=== PATIENT | male | born 1980 | race Caucasian/White ===

== ENCOUNTER 2017-04-19 13:44 | Emergency (ER) | payer MEDICAID ==
[2017-04-19 13:54] VITALS: PULSE 120
--- NOTE | 2017-04-19 14:10 | EDPHY ---
HPI/HX/ROS/PE/MDM Narrative: CHIEF COMPLAINT: Testicle bruising HPI: The patient is a 37 y/o male complaining of testicular bruising that appeared last night. He states he has been using a "cock ring" around his penis and testicles every day for the last couple weeks. He developed swelling and bruising at the base of his penis and scrotum on the left side after using this device last night. He denies significant scrotal or abdominal pain, dysuria, hematuria, difficulty with erections, or other symptoms. REVIEW OF SYSTEMS: Aside from elements discussed in the HPI, a comprehensive 10-point review of systems was reviewed and is negative. PMH: Denies SOCIAL HISTORY: Lives in [place] PHYSICAL EXAM: General:Patient is alert, in no acute distress. ENT:Eyes are normal to inspection. ENT inspection normal. Neck: Normal inspection. Full range of motion. Respiratory:No respiratory distress. Cardiovascular: Normal cap refill. Abdomen:The abdomen is nontender to palpation. There are no peritoneal signs. : Mild tenderness to left inguinal canal, mild ecchymosis to midline scrotum Back: Normal to inspection. No tenderness to palpation. Skin: Normal color. No rash. Warm and dry. Extremities: Normal appearance. Full range of motion. Neuro: Oriented x3. Normal motor function. Normal sensory function. ED Course: Plan for testicular US. - Data Points Imaging Results: Imaging Impressions Testicular Ultrasound 04/19/17 14:03 Impression: 1. Normal testes. No torsion or orchitis. 2. Trace bilateral hydroceles. Findings discussed with Emergency Department physician, Dr. Jesus Toledo, on April 19, 2017 at 1506 hours. Imaging: Discussed imaging studies w/ ceramic worker Radiologist General Time Seen by Provider: 04/19/17 14:01 Initial Vital Signs: Initial Vital Signs Temperature (C) 36.6 C 04/19/17 13:50 Heart Rate 120 H 04/19/17 13:50 Respiratory Rate 16 04/19/17 13:50 Blood Pressure 142/108 H 04/19/17 13:50 O2 Sat (%) 96 04/19/17 13:50 O2 Delivery Mode Room Air Allergies/Adverse Reactions: Penicillins Allergy (Verified 10/17/11 12:54) HIVE Home Medications: Medication Instructions Recorded AMITRIPTYLINE HCL 03/25/16 Wellbutrin 100mg (RX) 03/25/16 Zyprexa 03/25/16 Departure - Departure Disposition: Home, Routine, Self-Care Clinical Impression: Bruise of scrotum Qualifiers: Encounter type: initial encounter Qualified Code(s): S30.22XA - Contusion of scrotum and testes, initial encounter Condition: Good Instructions: Scrotal Pain (ED) Additional Instructions: Discontinue use of cock ring. Follow up with your primary care provider or urologist for continued symptoms. Return to the ED for severe pain, blood in your urine, or other worsening of condition. Referrals: NONE *PRIMARY CARE P,. [Primary Care Provider] - As per Instructions Chris Hassan MD [Medical Doctor] - As per Instructions Report Scribed for: Jesus Toledo Report Scribed by: Maddie Collins Date of Report: 04/19/17 Time of Report: 14:10 Physician Review and Approval Statement: Portions of this note were transcribed by an ED scribe. I personally performed the history, physical exam, and medical decision making; and confirm the accuracy of the information in the transcribed note.
[2017-04-19 15:24] VITALS: BP 144/88; RESP 18; TEMP 98.2; O2SAT 95
== END 2017-04-19 15:23 | disposition home or self-care (01) ==
DX: S30.22XA Contusion of scrotum and testes, initial encounter (principal); W22.8XXA Striking against or struck by other objects, initial encounter

== ENCOUNTER 2018-05-28 05:45 | Emergency (ER) | payer MEDICAID ==
[2018-05-28] MEDS ORDERED: PHENAZOPYRIDINE HCL 200 MG TAB PO ONE (05:59)
--- NOTE | 2018-05-28 06:10 | EDPHY ---
H & P Time Seen by Provider: 05/28/18 06:09 HPI/ROS: 38 yo M presents c/o gus hematuria that began this morning. No fever or chils, has had some achiness right lower back and past hx of kidney stones. Review of systems As per [facility] General no fever no chills no weakness HEENT no eye pain no eye discharge. No eye redness, no sore throat Respiratory no cough, no shortness of breath Cardiac no chest pain, no peripheral edema GI no abdominal pain, no diarrhea, no constipation, no nausea, no vomiting no flank pain, positive hematuria, no dysuria Musculoskeletal no myalgias, no joint pain Heme no easy bruising, no easy bleeding Endo no polyuria, no polydipsia Skin no rashes, no pruritus Neuro no syncope, no dizziness, no headaches Psych is no suicidal ideation, no homicidal ideation Past Medical/Surgical History: bipolar kidney stones Social History: denies current drug use Smoking Status: Former smoker Physical Exam: 38-year-old male alert and oriented no acute distress nontoxic appearance afebrile HEENT atraumatic normocephalic, extraocular muscles intact, anicteric Oropharynx negative for erythema negative exudate, tolerating her own secretions Neck supple no meningismus Lungs clear to auscultation bilaterally Heart regular rate and rhythm without murmur rub or gallop Abdomen nondistended normoactive bowel sounds soft nontender Back no CVA tenderness, no step-offs, no spinal tenderness Extremities no cyanosis clubbing or edema Neuro alert and oriented, no focal deficits Constitutional: Initial Vital Signs Temperature (C) 36.4 C 05/28/18 05:48 Heart Rate 96 05/28/18 05:48 Respiratory Rate 16 05/28/18 05:48 Blood Pressure 129/98 H 05/28/18 05:48 O2 Sat (%) 98 05/28/18 05:48 O2 Delivery Mode Room Air Allergies/Adverse Reactions: Penicillins Allergy (Verified 05/28/18 05:48) HIVE Home Medications: Medication Instructions Recorded AMITRIPTYLINE HCL 03/25/16 Wellbutrin 100mg (RX) 03/25/16 Zyprexa 03/25/16 Phenazopyridine HCl 200 mg PO TID 2 Days #6 tablet 05/28/18 Sulfamethox/Tmp 800/160 mg 1 tab PO BID #14 tab 05/28/18 [Bactrim Ds] Medical Decision Making ED Course/Re-evaluation: pt here for evaluation of hematuria, dysuria. sent ua, urine culture CBC bmp wnl creatinine 1.3 imp Hemmorhagic cystitis Plan bactrim phenazopyridine f/u [facility] Differential Diagnosis: Differential diagnosis considered but not limited to: Hematuria, hemorrhagic cystitis, urinary tract infection, ureterolithiasis - Data Points Laboratory Results: 05/28/18 05/28/18 06:35 06:00 POC Sodium 140 mEq/L mEq/L (135-145) POC Potassium 3.7 mEq/L mEq/L (3.3-5.0) POC Chloride 102.0 mEq/L mEq/L (97-110) POC Total CO2 25 mEq/L mEq/L (22-31) POC BUN 10 mg/dL mg/dL (7-23) POC Creatinine 1.3 mg/dL mg/dL (0.7-1.3) POC Glucose 85 mg/dL mg/dL (70-100) POC Calcium 9.3 mg/dL mg/dL (8.5-10.4) Urine Color Pending Urine Appearance Pending Urine pH Pending Ur Specific [place] Pending Urine Protein Pending Urine Ketones Pending Urine Blood Pending Urine Nitrate Pending Urine Bilirubin Pending Urine Urobilinogen Pending Ur Leukocyte Esterase Pending Urine RBC Pending Urine WBC Pending Ur Epithelial Cells Pending Urine Glucose Pending Medications Given: Discontinued Medications Phenazopyridine HCl (Pyridium) 200 mg PO EDNOW ONE Stop: 05/28/18 06:00 Last Admin: 05/28/18 06:03 Dose: 200 mg Trimethoprim/Sulfamethoxazole (Bactrim Ds Prepack#2) 1 btl TAKEHOME EDNOW ONE Stop: 05/28/18 06:34 Last Admin: 05/28/18 06:40 Dose: 1 btl Point of Care Test Results: CBC CBC Collection Date 05/28/18 CBC Collection Time 06:25 WBC 13 RBC 5.67 HGB 17.2 HCT 51.6 PLT 208 Neut # 10.2 Neut 78.6 LYMPH # 2.3 LYMPH 17.6 Other WBC # 0.5 Other WBC 3.8 MCV 91 Chemistry 05/28/18 06:35 POC Sodium 140 mEq/L mEq/L (135-145) POC Potassium 3.7 mEq/L mEq/L (3.3-5.0) POC Chloride 102.0 mEq/L mEq/L (97-110) POC Total CO2 25 mEq/L mEq/L (22-31) POC BUN 10 mg/dL mg/dL (7-23) POC Creatinine 1.3 mg/dL mg/dL (0.7-1.3) POC Glucose 85 mg/dL mg/dL (70-100) POC Calcium 9.3 mg/dL mg/dL (8.5-10.4) Departure - Departure Disposition: Home, Routine, Self-Care Clinical Impression: Acute hemorrhagic cystitis Condition: Good Instructions: Sulfamethoxazole/Trimethoprim (By mouth), Urinary Tract Infection in Men (ED), Hematuria (ED) Referrals: [facility] [Provider Group] - As per Instructions Stand Alone Forms: Work Excuse Prescriptions: Phenazopyridine HCl 200 mg PO TID 2 Days #6 tablet Sulfamethox/Tmp 800/160 mg [Bactrim Ds] 1 tab PO BID #14 tab
[2018-05-28] MEDS ORDERED: SULFAMET/TMP DS PREPACK#2 BTL TAKEHOME ONE (06:33)
[2018-05-28 07:23] VITALS: BP 143/103
== END 2018-05-28 07:10 | disposition home or self-care (01) ==
LOC: CED 05:45
DX: N30.01 Acute cystitis with hematuria (principal); B96.20 Unspecified Escherichia coli [E. coli] as the cause of diseases classified elsewhere; Z87.891 Personal history of nicotine dependence
CPT/HCPCS: 80048-PO